=== PATIENT | female | born 1990 | race Caucasian/White ===

== ENCOUNTER 2016-04-24 14:40 | Emergency (ER) | payer BC ==
[2016-04-24 14:58] VITALS: BP 117/72
[2016-04-24] MEDS ORDERED: Ketorolac INJ* 60 MG/2 ML VIAL IM ONE (15:33)
--- NOTE | 2016-05-04 12:52 | ED ---
Throat Pain/Nasal Congestion - HPI Summary HPI Summary: Patient has a history of her jaw locking open, and today on her way to work she yawned and it became stuck open. She forced her jaw closed but now has intense pain on the left side of her jaw. She see a specialist and is actually waiting for approval for an MRI. She denies N/T, ear pain, or BRAMBILA, but does have pain. 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 Infectious Disease History: No Infectious Disease History: Denies: Traveled Outside the [place] in Last 30 Days - Family History Known Family History: Positive: Hypertension - Social History Occupation: Employed Full-time Lives: With Family Alcohol Use: Occasionally Substance Use Type: Reports: None Smoking Status (MU): Never Smoked Tobacco Review of Systems Positive: Myalgia - left TMJ Negative: Bruising All Other Systems Reviewed And Are Negative: Yes Physical Exam Triage Information Reviewed: Yes Vital Signs On Initial Exam: Initial Vitals Temp Pulse Resp BP Pulse Ox 100.1 F 99 18 117/72 98 04/24/16 14:53 04/24/16 14:53 04/24/16 14:53 04/24/16 14:53 04/24/16 14:53 Vital Signs Reviewed: Yes Appearance: Positive: Well-Appearing, No Pain Distress, Well-Nourished Skin: Positive: Warm, Skin Color Reflects Adequate Perfusion, Dry, Soft Head/Face: Positive: TMJ Tenderness - left sided; she is able to open and close her jaw in a 1 inch range Eyes: Positive: EOMI, ANDRIY, Conjunctiva Clear ENT: Positive: Hearing grossly normal Neck: Positive: Supple, Nontender, No Lymphadenopathy Respiratory/Lung Sounds: Positive: Breath Sounds Present Cardiovascular: Positive: RRR Musculoskeletal: Positive: Limited @ - jaw opens 1 inch, Pain @ - TTP left TMJ Neurological: Positive: Sensory/Motor Intact, Alert, Oriented to Person Place, Time, NV Bundle Intact Distally Psychiatric: Positive: Affect/Mood Appropriate AVPU Assessment: Alert Diagnostics - Vital Signs Vital Signs Temp Pulse Resp BP Pulse Ox 04/24/16 16:13 18 04/24/16 14:53 100.1 F 99 18 117/72 98 - Laboratory Lab Statement: Any lab studies that have been ordered have been reviewed, and results considered in the medical decision making process. EENT Course/Dx - Course Course Of Treatment: The patient and I discussed that since she has already had imaging and there are plans in place for an MRI, that we will manage her pain today but that she should contact to let him know about her current event. She will f/u with him as scheduled. - Differential Diagnoses Differential Diagnoses: Mandibular/Maxillary Trauma, Pain of Unknown Etiology, Trauma, TMJ Syndrome - Diagnoses Provider Diagnoses: Sprain of jaw, left side, initial encounter Discharge - Discharge Plan Condition: Stable Disposition: HOME Referrals: Rut Swan PA [Primary Care Provider] - Additional Instructions: Please follow-up with Dr. White as scheduled. You can begin using Ibuprofen 600mg three times daily tomorrow evening. Return to the emergency if your symptoms return.
== END 2016-04-24 16:13 | disposition home or self-care (01) ==
LOC: ED 14:40
DX: S03.42XA Sprain of jaw, left side, initial encounter (principal); X50.0XXA Overexertion from strenuous movement or load, initial encounter; Y93.9 Activity, unspecified; Y92.9 Unspecified place or not applicable; Y99.9 Unspecified external cause status
CPT/HCPCS: 96372; 99282; J1885

== ENCOUNTER 2018-03-30 09:53 | Emergency (ER) | payer BC ==
[2018-03-30 10:02] VITALS: BP 137/80
--- NOTE | 2018-03-30 10:26 | ED ---
Respiratory - HPI Summary HPI Summary: 27 yo white female p/w URI sx of sore throat and nasal congestion, f/c. - History of Current Complaint Chief Complaint: UCRespiratory Stated Complaint: SORE THROAT Time Seen by Provider: 03/30/18 10:01 Hx Obtained From: Patient Onset/Duration: Sudden Onset Initial Severity: Moderate Current Severity: Moderate Pain Intensity: 7 Character: Cough (Nonproductive) Sputum Amount: None Sputum Color: Clear Aggravating Factor(s): Nothing Alleviating Factor(s): Nothing Associated Signs and Symptoms: Negative - Allergy/Home Medications Allergies/Adverse Reactions: Allergies Allergy/AdvReac Type Severity Reaction Status Date / Time Sulfa (Sulfonamide Allergy See Comment Verified 03/30/18 10:02 Antibiotics) Home Medications: Home Medications Cyclobenzaprine TAB* [Flexeril 10 MG TAB*] 10 mg PO 03/30/18 [History] PMH/Surg Hx/FS Hx/Imm Hx Previously Healthy: Yes Endocrine/Hematology History: Denies: Hx Diabetes Cardiovascular History: Denies: Hx Hypertension, Hx Pacemaker/ICD History: Denies: Hx Dialysis, Hx Renal Disease Sensory History: Denies: Hx Hearing Aid Psychiatric History: Denies: Hx Panic Disorder - Surgical History Surgery Procedure, Year, and Place: JAN 2017 PROCEDURE - NEXPLANON. MAY 24, 2017- BILAT TMJ ARTHOSCOPY, DR NASIR SHETH Infectious Disease History: No Infectious Disease History: Denies: Traveled Outside the [place] in Last 30 Days - Social History Alcohol Use: Occasionally Substance Use Type: Reports: None Smoking Status (MU): Never Smoked Tobacco Review of Systems Constitutional: Negative Eyes: Negative Positive: Sore Throat, Nasal Discharge Cardiovascular: Negative Positive: Cough Gastrointestinal: Negative Genitourinary: Negative Musculoskeletal: Negative Skin: Negative Neurological: Negative Psychological: Normal All Other Systems Reviewed And Are Negative: Yes Physical Exam - Summary Physical Exam Summary: Vital Signs Reviewed: Yes Skin: Positive: Warm Head/Face: Positive: Normal Head/Face Inspection Eyes: Positive: Normal ENT: Positive: nasal congestion with mild pharyngeal erythema w/o exudates Neck: Positive: Supple Respiratory/Lung Sounds: Positive: Clear to Auscultation Cardiovascular: Positive: Normal, RRR, S1, S2 Abdomen Description: Positive: Nontender Musculoskeletal: Positive: Normal Neurological: Positive: Normal Psychiatric: Positive: Normal, Affect/Mood Appropriate Vital Signs On Initial Exam: Initial Vitals Temp Pulse Resp BP Pulse Ox 37.5 C 108 18 137/80 100 03/30/18 09:57 03/30/18 09:57 03/30/18 09:57 03/30/18 09:57 03/30/18 09:57 Diagnostics - Vital Signs Vital Signs Temp Pulse Resp BP Pulse Ox 03/30/18 09:57 37.5 C 108 18 137/80 100 - Laboratory Lab Results: Lab Results 03/30/18 Range/Units 10:06 Group A Strep Rapid Negative (Negative) Lab Statement: Any lab studies that have been ordered have been reviewed, and results considered in the medical decision making process. Disposition - Course Assessment/Plan: URI- rapid strep neg- continue salt gargling and supprotive tx - Diagnoses Provider Diagnoses: URI (upper respiratory infection) Discharge - Sign-Out/Discharge Documenting (check all that apply): Patient Departure All imaging exams completed and their final reports reviewed: Yes - Discharge Plan Condition: Stable Disposition: HOME Patient Education Materials: Upper Respiratory Infection (ED), Pharyngitis (ED) Referrals: Indio Sterling [Primary Care Provider] - - Billing Disposition and Condition Condition: STABLE Disposition: Home
== END 2018-03-30 10:26 | disposition home or self-care (01) ==
LOC: UCEAST 09:53
DX: J06.9 Acute upper respiratory infection, unspecified (principal); Z88.2 Allergy status to sulfonamides
CPT/HCPCS: 87651; 99211; G0463

== ENCOUNTER 2018-05-20 14:35 | Emergency (ER) | payer BC, OTHER ==
[2018-05-20 14:42] VITALS: BP 137/79
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
== END 2018-05-20 16:06 | disposition home or self-care (01) ==
LOC: ED 14:35
DX: S60.212A Contusion of left wrist, initial encounter (principal); V43.52XA Car driver injured in collision with other type car in traffic accident, initial encounter; Y92.481 Parking lot as the place of occurrence of the external cause
CPT/HCPCS: 99282

== ENCOUNTER 2018-12-19 13:39 | Emergency (ER) | payer BC, OTHER ==
[2018-12-19 14:06] VITALS: BP 106/73
--- NOTE | 2018-12-19 14:32 | UC ---
Throat Pain/Nasal Dante HPI - HPI Summary HPI Summary: 28-year-old female comes in with a chief complaint of upper respiratory tract infection symptoms for 5 days. She's had yellow rhinorrhea. Is a sore throat. She's been having a low-grade fevers at home. Tylenol aren't helping with the fevers. Today with all the congestion she is felt nauseous. No complaint of any shortness of breath. She is having some myalgias. - History of Current Complaint Chief Complaint: UCGeneralIllness Stated Complaint: FLU LIKE SYMPTOMS Time Seen by Provider: 12/19/18 14:11 Hx Last Menstrual Period: 2 weeks ago Pain Intensity: 7 - Allergies/Home Medications Allergies/Adverse Reactions: Allergies Allergy/AdvReac Type Severity Reaction Status Date / Time Sulfa (Sulfonamide AdvReac See Comment Verified 12/19/18 14:06 Antibiotics) Home Medications: Home Medications Acetaminophen [Tylenol] 500 mg PO ONCE PRN 12/19/18 [History Confirmed 12/19/18] Ibuprofen TAB* [Advil TAB*] 800 mg PO ONCE PRN 12/19/18 [History Confirmed 12/19] PMH/Surg Hx/FS Hx/Imm Hx Previously Healthy: Yes - Surgical History Surgical History: Yes Surgery Procedure, Year, and Place: MAY 24, 2017- BILAT TMJ ARTHOSCOPY, DR HAM [place] - Family History Known Family History: Positive: Non-Contributory - Social History Alcohol Use: Occasionally Substance Use Type: None Smoking Status (MU): Never Smoked Tobacco Review of Systems All Other Systems Reviewed And Are Negative: Yes Constitutional: Positive: Other - SEE HPI Skin: Positive: Negative Eyes: Positive: Negative ENT: Positive: Sore Throat, Nasal Discharge, Sinus Congestion, Sinus Pain/ Tenderness Respiratory: Positive: Negative Cardiovascular: Positive: Negative Gastrointestinal: Positive: Nausea Motor: Positive: Negative Neurovascular: Positive: Negative Musculoskeletal: Positive: Negative Neurological: Positive: Negative Psychological: Positive: Negative Is Patient Immunocompromised?: No Physical Exam Triage Information Reviewed: Yes Appearance: No Pain Distress, Well-Nourished, Ill-Appearing - MILD Vital Signs: Initial Vital Signs Temp 99.5 F 12/19/18 14:03 Pulse 88 12/19/18 14:03 Resp 18 12/19/18 14:03 BP 106/73 12/19/18 14:03 Pulse Ox 100 12/19/18 14:03 Vital Signs Reviewed: Yes Eye Exam: Normal Eyes: Positive: Conjunctiva Clear ENT: Positive: Pharyngeal erythema, Nasal congestion, Nasal drainage, TMs normal Neck: Positive: Supple Respiratory: Positive: Lungs clear, Normal breath sounds, No respiratory distress Cardiovascular: Positive: RRR Musculoskeletal: Positive: Strength Intact, ROM Intact Neurological: Positive: Alert Psychological: Positive: Age Appropriate Behavior Skin Exam: Normal Throat Pain/Nasal Course/Dx - Differential Dx/Diagnosis Provider Diagnosis: Upper respiratory infection, Pharyngitis Discharge ED - Sign-Out/Discharge Documenting (check all that apply): Patient Departure All imaging exams completed and their final reports reviewed: No Studies - Discharge Plan Condition: Stable Disposition: HOME Prescriptions: Amoxicillin PO (*) [Amoxicillin 875 MG (*)] 875 mg PO BID #20 tab Patient Education Materials: Upper Respiratory Infection (ED), Pharyngitis (ED) Referrals: Indio Sterling [Primary Care Provider] - Additional Instructions: FOLLOW UP WITH YOUR DOCTOR IF NOT COMPLETELY IMPROVED. GET RECHECKED SOONER IF YOUR CONDITION WORSENS OR ANY QUESTIONS OR CONCERNS. - Billing Disposition and Condition Condition: STABLE Disposition: Home
[2018-12-19 14:35] LABS: Influenza A Molecular NEGATIVE (Negative); Influenza B Molecular NEGATIVE (Negative)
== END 2018-12-19 14:45 | disposition home or self-care (01) ==
LOC: UCEAST 13:39
DX: J06.9 Acute upper respiratory infection, unspecified (principal); J02.9 Acute pharyngitis, unspecified; Z88.2 Allergy status to sulfonamides
CPT/HCPCS: 87651; 99212; G0463

== ENCOUNTER 2021-11-23 21:50 | Observation (INO) ==
[2021-11-23] MEDS ORDERED: oxyCODONE/Acetamin 5/325 mg TAB PO ONE (22:03)
[2021-11-23] MEDS ORDERED: Lactated Ringers 1000 ml BAG 1,000 ML IV ONE (22:12)
[2021-11-23] MEDS ORDERED: Morphine 4 MG/ML VIAL (1 ml) IV ONE (22:12)
[2021-11-23 22:25] LABS: ABS Eosinophils 0.1 10^3/ul (0-0.6); ABS Lymphocytes 1.5 10^3/ul (1.0-4.8); ABS Monocytes 0.4 10^3/ul (0-0.8); ABS Neutrophils 5.8 10^3/ul (1.5-7.7); Eosinophil % 1.4 %; Hematocrit 38 % (35-47); Hemoglobin 12.1 g/dL (12.0-16.0); Mean Corpuscular HGB Conc 32 g/dL (31-36); Mean Corpuscular Hemoglobin 27 pg (27-31); Mean Corpuscular Volume 84 fL (80-97); Mean Platelet Volume 8.9 fL (7.4-10.4); Nucleated Red Blood Cells % 0.1; Platelet Count 161 10^3/uL (150-450); Red Blood Count 4.49 10^6 /uL (3.70-4.87); Red Cell Distribution Width 17 % (10-15); White Blood Count 7.8 10^3/uL (3.5-10.8)
[2021-11-23 23:13] LABS: Albumin 4.1 g/dL (3.2-5.2); Albumin/Globulin Ratio 1.7 (1-3); Calcium 8.9 mg/dL (8.6-10.3); Globulin 2.4 g/dL (2-4); Potassium 3.8 mmol/L (3.5-5.0); Total Bilirubin 1.8 mg/dL (0.2-1.0); Total Protein 6.5 g/dL (6.4-8.9); eGFR CKD-EPI 80.1 (>60)
[2021-11-23] MEDS ORDERED: Ondansetron 4 mg VIAL 2 MG/ML 2 ml VIAL IV PRN (23:25)
[2021-11-23] MEDS ORDERED: Lactated Ringers 1000 ml BAG 1,000 ML IV SCH (23:45)
[2021-11-24 08:11] LABS: ABS Eosinophils 0.1 10^3/ul (0-0.6); ABS Lymphocytes 1.7 10^3/ul (1.0-4.8); ABS Monocytes 0.3 10^3/ul (0-0.8); ABS Neutrophils 3.3 10^3/ul (1.5-7.7); Eosinophil % 1.8 %; Hematocrit 36 % (35-47); Hemoglobin 11.5 g/dL (12.0-16.0); Lymphocyte % 30.9 %; Mean Corpuscular HGB Conc 32 g/dL (31-36); Mean Corpuscular Hemoglobin 27 pg (27-31); Mean Corpuscular Volume 84 fL (80-97); Mean Platelet Volume 8.8 fL (7.4-10.4); Nucleated Red Blood Cells % 0.1; Platelet Count 147 10^3/uL (150-450); Red Blood Count 4.24 10^6 /uL (3.70-4.87); Red Cell Distribution Width 17 % (10-15); White Blood Count 5.5 10^3/uL (3.5-10.8)
[2021-11-24 08:19] LABS: INR 1.02 (0.89-1.11)
[2021-11-24 08:49] LABS: Albumin 3.5 g/dL (3.2-5.2); Albumin/Globulin Ratio 1.7 (1-3); Calcium 8.5 mg/dL (8.6-10.3); Globulin 2.1 g/dL (2-4); Potassium 4.3 mmol/L (3.5-5.0); Total Bilirubin 1.6 mg/dL (0.2-1.0); Total Protein 5.6 g/dL (6.4-8.9); eGFR CKD-EPI 95.1 (>60)
[2021-11-24 09:35] LABS: HCG Pregnancy 0.69 mIU/mL
[2021-11-24] MEDS ORDERED: Zosyn per Pharmacy NOTE FOLLOW UP SCH (11:00)
[2021-11-24] MEDS ORDERED: Piperacillin/Tazobac ADVAN 3.375 GM in NS 0.9% 100 ml BAG 100 ML IV ONE (11:30)
[2021-11-24] MEDS ORDERED: Iohexol 180 (CONTRAST) 20 ML SDV IV ONE (12:46)
[2021-11-24] MEDS ORDERED: Iohexol 180 (CONTRAST) 10 ML SDV IV ONE ×2 (12:46→14:29)
[2021-11-24] MEDS ORDERED: Bupivacaine 0.25% EPI 200,000 30 ML SDV ONE (12:47)
[2021-11-24] MEDS ORDERED: Naloxone 0.4 mg VIAL 0.4 mg/ml 1 ml VIAL IV PRN (12:55)
[2021-11-24] MEDS ORDERED: Ondansetron 4 mg VIAL 2 MG/ML 2 ml VIAL IV PRN (12:55)
[2021-11-24] MEDS ORDERED: fentaNYL 100 mcg/2 ml 50 MCG/ML VIAL ONE ×3 (13:03→15:31)
[2021-11-24] MEDS ORDERED: Lidocaine 2% PF 5 ML VIAL ONE (13:03)
[2021-11-24] MEDS ORDERED: Midazolam 2 mg/2 ml VIAL 1 mg/ml 2 ml VIAL (2 mg) ONE (13:03)
[2021-11-24] MEDS ORDERED: Propofol 10 MG/ML 20 ML BTL ONE (13:04)
[2021-11-24] MEDS ORDERED: Dexamethasone IV 4 MG/ML VIAL 1 ml VIAL ONE (13:04)
[2021-11-24] MEDS ORDERED: Ondansetron 4 mg VIAL 2 MG/ML 2 ml VIAL ONE ×2 (13:04→15:31)
[2021-11-24] MEDS ORDERED: Rocuronium 50 mg VIAL 10 mg/ml 5 ml VIAL (50 mg) ONE (13:20)
[2021-11-24] MEDS ORDERED: Acetaminophen IV 1 GM/100ML 1,000 MG/100 ML BAG IV ONE (14:45)
[2021-11-24 15:23] VITALS: BP 139/79
[2021-11-24] MEDS: fentaNYL 100 mcg/2 ml 50 MCG/ML VIAL IV PRN ×2 (15:32→15:43)
[2021-11-24] MEDS ORDERED: ZOSYN 3.375 GM Q8H per EXTENDED INFUSION IV SCH (16:00)
== END 2021-11-24 16:34 | disposition home or self-care (01) ==
LOC: EDHOLD 21:50 → ED 21:50 → EDHOLD 11-24 04:51 → SSU 11-24 05:03
PROVIDERS: ADMIT Internal Medicine; ATTEND Surgery